=== PATIENT | female | born 2000 | race Caucasian/White ===

== ENCOUNTER 2021-04-21 18:26 | Emergency (ER) | payer OTHER ==
[2021-04-21 21:09] LABS: Urine Blood Trace-intact (Negative); Urine Glucose Negative (Negative); Urine Protein Negative (Negative); Urine pH 7.5 (5.0-7.0)
[2021-04-21 21:33] LABS: Absolute Lymphocytes (CBC) 2.6 K/uL (0.7-4.9); Basophils % 1.2 % (0-1.3); Hematocrit 42.3 % (36.0-45.0); MPV 8.4 fL (7.6-11.3); RBC Red Blood Cell Count 5.09 M/uL (3.86-4.86)
[2021-04-21] MEDS ORDERED: NA CHLORIDE 0.9% 1,000 ML ONE (21:40)
[2021-04-21 21:46] LABS: Protime INR 1.18
[2021-04-21 21:47] LABS: ALT/SGPT 63 U/L (12-78); AST/SGOT 19 U/L (15-37); Albumin 3.6 g/dL (3.4-5.0); Alkaline Phosphatase 74 U/L (45-117); BUN Blood Urea Nitrogen 7 mg/dL (7-18); Bicarbonate 29 mmol/L (21-32); Bilirubin Direct 0.1 mg/dL (0-0.2); Bilirubin Total 0.3 mg/dL (0.2-1.0); Ferritin 20.8 ng/mL (8-388); Glucose Level 104 mg/dL (74-106); Magnesium 2.2 mg/dL (1.8-2.4); NT PRO-BNP 11 pg/mL (<125); Potassium 3.6 mmol/L (3.5-5.1); Protein, Total 7.4 g/dL (6.4-8.2); Sodium Level 140 mmol/L (136-145); Troponin (Emerg Dept Use Only) < 0.02 ng/mL (0.0-0.045)
[2021-04-21 21:53] LABS: C-Reactive Protein < 2.90 mg/L (<3.00)
[2021-04-21 22:15] LABS: Urine Amorphous Sediment 4+ /HPF (NONE SEEN); Urine Bacteria <20 /HPF (<20)
[2021-04-21 22:16] LABS: Urine RBC NONE SEEN /HPF (NONE SEEN)
--- NOTE | 2021-04-21 22:19 | RAD REPORT ---
EXAM DESCRIPTION: RAD - Chest Single View - 04/21/2021 9:18 pm CLINICAL HISTORY: Chest pain;SOB Chest pain. COMPARISON: No comparisons FINDINGS: Portable technique limits examination quality. The lungs are grossly clear. The heart is normal in size. No displaced fractures. IMPRESSION: No acute intrathoracic process suspected.
--- NOTE | 2021-04-22 00:32 | EDPHYS ---
Physician Documentation [facility] Name: Sabrina Cordova Age: 21 yrs Sex: Female : 2000 Arrival Date: 04/21/2021 Time: 18:30 Bed 5 Private MD: ED Physician Misael Juarez HPI: 04/21 20:30 This 21 yrs old Female presents to ER via Ambulatory with complaints of Covid cp + sob. 20:30 The patient or guardian reports shortness of breath. cp 20:30 Onset: The symptoms/episode began/occurred gradually. Associated signs and symptoms: cp Pertinent positives: chest pain, Pertinent negatives: diarrhea, fever, sore throat, vomiting. Severity of symptoms: in the emergency department the symptoms are unchanged despite home interventions. Patient reports testing positive for COVID-19 last Monday, 8 days ago, after symptoms started 8 days ago. Patient reports she was seen and evaluated at [facility] and given IV monoclonal antibodies, prescribed dexamethasone and an inhaler. Patient reports she has been taking daily aspirin. Patient comes to ED today with complaints shortness of breath and chest pain. 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 - Social history:: Smoking status: Patient denies any tobacco usage or history of. Patient uses. ROS: 20:35 Constitutional: Negative for body aches, chills, fever, poor PO intake. cp 20:35 Cardiovascular: Positive for chest pain. cp 20:35 Respiratory: Positive for shortness of breath, at rest. Negative for wheezing. cp 20:35 Abdomen/GI: Negative for abdominal pain, nausea, vomiting, and diarrhea, constipation. cp 20:35 Eyes: Negative for injury, pain, redness, and discharge. cp 20:35 ENT: Negative for ear pain, sore throat, difficulty swallowing, difficulty handling cp secretions. 20:35 Back: Negative for radiated pain. 20:35 Skin: Negative for cellulitis, rash. 20:35 Neuro: Negative for altered mental status, headache, loss of consciousness, syncope, weakness. 20:35 All other systems are negative. Exam: 20:40 Constitutional: The patient appears in no acute distress, alert, awake, cp non-diaphoretic, non-toxic, well developed, well nourished. 20:40 Head/Face: Normocephalic, atraumatic. cp 20:40 Eyes: Periorbital structures: appear normal, Conjunctiva: normal, no exudate, no injection, Sclera: no appreciated abnormality, Lids and lashes: appear normal, bilaterally. 20:40 ENT: External ear(s): are unremarkable, Nose: is normal, Mouth: Lips: moist, Oral mucosa: moist, Posterior pharynx: Airway: no evidence of obstruction, patent. 20:40 Neck: ROM/movement: is normal, is supple, without pain, no range of motions limitations, no nuchal rigidity. 20:40 Chest/axilla: Inspection: normal. 20:40 Cardiovascular: Rate: tachycardic, Rhythm: regular, Edema: is not appreciated, JVD: is not appreciated. 20:40 Respiratory: the patient does not display signs of respiratory distress, Respirations: normal, no use of accessory muscles, no retractions, labored breathing, is not present, Breath sounds: are clear throughout, no decreased breath sounds, no stridor, no wheezing. 20:40 Abdomen/GI: Exam negative for discomfort, distension, guarding, Inspection: abdomen appears normal. 20:40 Back: pain, is absent, ROM is normal. 20:40 Neuro: Orientation: to person, place \T\ time. Mentation: is normal, Motor: moves all fours, strength is normal, Sensation: is normal. 21:45 ECG was reviewed by the Attending Physician. Vital Signs: 19:19 BP 132 / 85; Pulse 125; Resp 20; Temp 98.8; Pulse Ox 100% ; jh5 22:08 BP 107 / 70; Pulse 80; Resp 18; Pulse Ox 100% on R/A; Pain 0/10; df1 23:00 BP 110 / 75; Pulse 78; Resp 18; Pulse Ox 98% on R/A; df1 04/22 00:00 BP 118 / 76; Pulse 74; Resp 18; Pulse Ox 98% on R/A; df1 MDM: 11 20:16 Patient medically screened. 04/22 00:30 Data reviewed: vital signs, nurses notes, lab test result(s), EKG, radiologic studies, cp CT scan, plain films. 00:30 Test interpretation: by ED physician or midlevel provider: ECG, plain radiologic cp studies. 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 04/21 20:25 Order name: Urine Microscopic Only 04/21 20:25 Order name: Basic Metabolic Panel 04/21 20:25 Order name: CBC with Diff; Complete Time: 22:08 04/21 22:08 Interpretation: Normal except: RBC 5.09; LYM% 45.0. 04/21 20:25 Order name: LFT's; Complete Time: 22:08 04/21 20:25 Order name: Magnesium; Complete Time: 22:08 04/21 20:25 Order name: NT PRO-BNP; Complete Time: 22:08 04/21 20:25 Order name: PT-INR; Complete Time: 22:08 04/21 20:25 Order name: Troponin (emerg Dept Use Only); Complete Time: 22:08 04/21 20:25 Order name: D-Dimer; Complete Time: 22:08 04/21 20:25 Order name: Ferritin; Complete Time: 22:08 04/21 20:25 Order name: CRP; Complete Time: 22:08 04/21 20:26 Order name: Urine Microscopic Only; Complete Time: 22:44 EDNV 04/21 22:44 Interpretation: Normal except: AMORPH 4+. 04/21 20:26 Order name: Basic Metabolic Panel; Complete Time: 22:08 EDNV 04/21 21:08 Order name: Urine --Ancillary (enter results) tt3 04/21 20:25 Order name: Urine Dipstick-Ancillary (obtain specimen); Complete Time: 22:06 04/21 20:25 Order name: XRAY Chest (1 view); Complete Time: 22:44 04/21 22:44 Interpretation: Report review. 04/21 20:25 Order name: EKG; Complete Time: 20:26 04/21 20:25 Order name: Cardiac monitoring; Complete Time: 22:03 cp 04/21 20:25 Order name: EKG - Nurse/Tech; Complete Time: 22:03 cp 04/21 20:25 Order name: IV Saline Lock; Complete Time: 22:03 cp 04/21 20:25 Order name: Labs collected and sent; Complete Time: 22:03 04/21 20:25 Order name: O2 Per Protocol; Complete Time: 22:03 04/21 20:25 Order name: O2 Sat Monitoring; Complete Time: 22:03 cp 04/21 20:25 Order name: Urine Test (obtain specimen); Complete Time: 21:26 cp 04/21 21:08 Order name: Urine Dipstick-Ancillary; Complete Time: 22:08 EDMS 04/21 21:09 Order name: Urine --Ancillary; Complete Time: 22:08 EDMS 04/21 23:13 Order name: CT Chest For PE Angio cp EC/10 21:45 Rate is 76 beats/min. Rhythm is regular. UT interval is normal. QRS interval is normal. cp QT interval is normal. T waves are Inverted in lead aVR. Interpreted by me. Reviewed by me. Administered Medications: 21:44 Drug: NS 0.9% 1000 ml Route: IV; Rate: 1 bolus; Site: right antecubital; df1 22:45 Follow up: IV Status: Completed infusion; IV Intake: 1000ml dc2 Disposition: 04/22 05:49 Co-signature as Attending Physician, Misael Juarez MD I agree with the assessment and sp3 plan of care. Disposition Summary: 04/22/21 00:31 Discharge Ordered Location: Home cp Problem: new cp Symptoms: have improved cp Condition: Stable cp Diagnosis - SARS-associated coronavirus as the cause of diseases classified elsewhere cp Followup: cp - With: Romario Jose MD - When: 2 - 3 days - Reason: Worsening of condition Discharge Instructions: - Discharge Summary Sheet cp - Aspirin and Your Heart cp - Form - Excuse from Work, School, or Physical Activity cp - COVID-19 cp - Things to Know about the COVID-19 Pandemic - [facility] cp - 10 Things You Can Do to Manage Your COVID-19 Symptoms at Home - [facility] [place] cp - COVID-19: Quarantine vs. Isolation - [facility] [place] cp - Prevent the Spread of COVID-19 if You Are Sick - [facility] [place] 2[place] cp Forms: - Medication Reconciliation Form cp - Thank You Letter cp - Antibiotic Education cp - Prescription Opioid Use cp Signatures: Dispatcher [employer] EDMS Guilherme Payne PA PA cp Patel, Setul, MD MD sp3 Amanda Greenwood df1 Cara Wynn RN RN jh5 Ama Purcell RN dc2
--- NOTE | 2021-04-22 00:32 | ER ---
Nurse's Notes [facility] Name: Sabrina Cordova Age: 21 yrs Sex: Female : 2000 Arrival Date: 04/21/2021 Time: 18:30 Bed 5 Private MD: Diagnosis: SARS-associated coronavirus as the cause of diseases classified elsewhere Presentation: 04/21 19:19 Chief complaint: Patient states: COVID+ w/ SOB x3 days (tested positive last Monday) jh5 SOB progressively getting worse. Coronavirus screen: Vaccine status: Patient reports being unvaccinated. "planning on getting vaccinated now" Client denies travel out of the [place] in the last 14 days. Client presents with at least one sign or symptom that may indicate coronavirus-19. Standard/surgical mask placed on the client. Ebola Screen: Patient negative for fever greater than or equal to 101.5 degrees Fahrenheit, and additional compatible Ebola Virus Disease symptoms Patient denies exposure to infectious person. Patient denies travel to an Ebola-affected area in the 21 days before illness onset. Initial Sepsis Screen: Does the patient meet any 2 criteria? HR > 90 bpm. Does the patient have a suspected source of infection?. Risk Assessment: Do you want to hurt yourself or someone else? Patient reports no desire to harm self or others. Onset of symptoms. 19:19 Method Of Arrival: Ambulatory [facility] 19:19 Acuity: PRADIP 3 jh5 Triage Assessment: 19:24 General: Appears in no apparent distress. comfortable, slender, well groomed, Behavior 5 is calm, cooperative, appropriate for age. Pain: Denies pain. 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 - Social history:: Smoking status: Patient denies any tobacco usage or history of. Patient uses. Screenin:28 Abuse screen: Denies threats or abuse. Denies injuries from another. Nutritional 5 screening: No deficits noted. Tuberculosis screening: No symptoms or risk factors identified. Fall Risk None identified. Assessment: 19:27 Reassessment: Pt endorces NARCOLEPSY; is unmedicated at this time. PMHX was not an [facility] option to select in triage charting. 22:03 General: Appears in no apparent distress. comfortable, Behavior is calm, cooperative. df1 Pain: Denies pain. Neuro: No deficits noted. Cardiovascular: No deficits noted. Respiratory: Reports shortness of breath at rest Airway is patent Trachea midline Respiratory effort is even, unlabored, Respiratory pattern is regular, symmetrical, Breath sounds are clear bilaterally. GI: No deficits noted. : No deficits noted. EENT: No deficits noted. Derm: No deficits noted. Musculoskeletal: No deficits noted. Vital Signs: 19:19 BP 132 / 85; Pulse 125; Resp 20; Temp 98.8; Pulse Ox 100% ; jh5 22:08 BP 107 / 70; Pulse 80; Resp 18; Pulse Ox 100% on R/A; Pain 0/10; df1 23:00 BP 110 / 75; Pulse 78; Resp 18; Pulse Ox 98% on R/A; df1 04/22 00:00 BP 118 / 76; Pulse 74; Resp 18; Pulse Ox 98% on R/A; df1 ED Course: 04/21 18:30 Patient arrived in ED. ds1 19:23 Triage completed. 5 19:28 Arm band placed on right wrist. 5 20:02 Guilherme Payne PA is PHCP. cp 20:02 Misael Juarez MD is Attending Physician. cp 20:08 Ama Purcell, RN is Primary Nurse. dc2 21:18 XRAY Chest (1 view) In Process Unspecified. EDMS 21:25 Urine --Ancillary (enter results) Sent. df1 21:50 Patient has correct armband on for positive identification. Placed in gown. Bed in low df1 position. Call light in reach. Side rails up X 1. 21:50 No provider procedures requiring assistance completed. Inserted saline lock: 20 gauge df1 in right antecubital area, using aseptic technique. 22:03 Basic Metabolic Panel Sent. df1 22:06 Urine Microscopic Only Sent. df1 22:07 Urine Microscopic Only Sent. df1 23:50 Patient moved back from CT. dc2 23:58 CT Chest For PE Angio In Process Unspecified. EDMS 04/22 00:31 Romario Jose MD is Referral Physician. cp 00:50 IV discontinued, intact, bleeding controlled, No redness/swelling at site. Pressure df1 dressing applied. Administered Medications: 04/21 21:44 Drug: NS 0.9% 1000 ml Route: IV; Rate: 1 bolus; Site: right antecubital; df1 22:45 Follow up: IV Status: Completed infusion; IV Intake: 1000ml dc2 Intake: 22:45 IV: 1000ml; Total: 1000ml. dc2 Outcome: 04/22 00:31 Discharge ordered by . cp 00:49 Discharged to home ambulatory. df1 00:49 Condition: good 00:49 Discharge instructions given to patient, Instructed on discharge instructions, follow up and referral plans. Demonstrated understanding of instructions, follow-up care. 00:50 Patient left the ED. df1 Signatures: Dispatcher [employer] [facility] Viola Ayon ds1 Guilherme Payne PA PA cp Furlich, Dawn df1 Jazzy, Ama RN RN dc2 Cara Wynn RN RN jh5
[2021-04-22 01:19] VITALS: TEMP 98.8
[2021-04-22 01:33] VITALS: BP 118/76; O2SAT 98
--- NOTE | 2021-04-22 09:36 | RAD REPORT ---
EXAM DESCRIPTION: CT - Chest For Pe Angio - 04/22/2021 5:17 am CLINICAL HISTORY: 21 years, Female, Chest pain;SOB COMPARISON: None. TECHNIQUE: Multiple transaxial tomograms of the chest were obtained from the lung apices through the lung bases utilizing 2 mm slice thickness at 2 mm interval reconstruction after the administration o f large bolus of IV for complete opacification of the pulmonary arteries. Subsequent 3-D maximum intensity projection images were generated in the coronal and sagittal plane f or review. This exam was performed according to our departmental dose-optimization protocol, which includes auto mated exposure control, adjustment of the mA and/or kV according to patient size and/or use of iterat trent reconstruction technique. FINDINGS: The lungs parenchyma demonstrate the presence of anatomical variants of azygos lobe. No si gnificant masses, nodules and/or consolidations are identified allowing for the breathing motion. The trachea mainstem bronchus demonstrate to be normal. There is no significant pericardial or pleura l effusions. The thoracic aorta demonstrate to be unremarkable. The heart is normal in size. No evidence for right ventricular strain. There are no coronary artery calcifications. There is minimal haziness within the anterior superior mediastinum most likely corresponding to very minimal residual thymic tissue on axial image 43-50. There is no significant mediastinal and/or hilar lymphadenopathy. The axillary regions demonstrate to be clear. Pulmonary arteries demonstrate to be normal, no intraluminal defect are seen that would suggest pulmo nary embolus. The bone windows demonstrate no significant skeletal lesions. The visualized portions of the upper abdomen demonstrate to be unremarkable. IMPRESSION: No evidence for pulmonary embolus. Anomalous variants of azygos lobe. Otherwise unremarkable CT scan of the chest with contrast. Electronically signed by: Andrae Voss MD 04/22/2021 12:15 AM CAR SWEEPER Due to temporary technical issues with the PACS/Fluency reporting system, reports are being signed by the in house radiologists without review as a courtesy to insure prompt reporting. The interpreting radiologist is fully responsible for the content of the report.
--- NOTE | 2021-04-23 20:42 | EKG ---
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
== END 2021-04-22 00:50 | disposition home or self-care (01) ==
LOC: ER 18:26
DX: U07.1 COVID-19 (principal); B97.29 Other coronavirus as the cause of diseases classified elsewhere
CPT/HCPCS: 93005; 85025; 80048; 36415; 83735; 81025; 85610; 85379; 80076; 84484; 82728; 83880; 86140; 71275; 71045; 96360; 99284; Q9967; J7030; 81003; 81015